=== PATIENT | female | born 1940 | race Caucasian/White ===

== ENCOUNTER → 2016-12-18 | Outpatient (CLI) | payer OTHER ==
[~2016-12-18] MED LIST: ADALAT CC PO; ADALAT CC30 MG PO; ALLEGRA ALLERG180 MG PO; AMBIEN PO; ANTIVERT PO; ASPIRIN; ASPIRIN81 M1 PO; ASPIRIN81 MG PO; CALTRATE 600+D PO; CALTRATE PLUS T1 TAB; CATAPRES-TTS-20.2 MG EXT; CATAPRES0.1 MG PO; CHANTIX; CLONIDINE PO; CRESTOR PO; CRESTOR5 MG PO; DIOVAN; HYDROCHLOROTHIA25 MG PO; IMODIUM2 MG; K-DUR20 ME2 PO; KCL PO; LEVOTHYROXINE100 MC1 PO; LEVOTHYROXINE100 MCG PO; LISINOPRIL20 MG PO; LOPRESSOR PO; LOPRESSOR100 MG PO; LORAZEPAM INT2 MG/ML; MAGNESIUM400 MG PO; METOPROLOL TAR100 MG PO; METOPROLOL TAR25 MG PO; MULTI VITAMIN1 EACH PO; MULTI-VITAMIN1 EAC1 PO; MULTI-VITAMIN1 TAB; MULTIPLE VITAMI1 T11 PO; NIFEDICAL PO; NIFEDICAL XL PO; NORCO 10/325 TA1 TAB PO; PREVACID PO; PREVACID SOLUTA30 MG PO; STOOL SOFT & ST1 TAB PO; STOOL SOFTENER100 M1 PO; SULAR; SYNTHROID PO; TOPROL XL PO
--- NOTE | ~2016-12-18 | MY29 ---
[facility] A Service of [facility] & [facility] RADIOLOGY TEXT RESULTS PATIENT: NIGHAT PARSON LOCATION: [facility] : 36 UNIT #: [id number] AGE: [address]: Dangelo Lau MD SEX: F ORDER DR: [id number] [facility] [address] [place], [place] [address] [id number] O MR#: [id number] Acc #: [id number] NAME: NIGHAT PARSON : 1940 SEX: F STUDY DATE/TIME: 12/18/2016 11:17 UNIT: [facility] ROOM: STUDY DESCRIPTION: [facility] SCREENING W/ CAD BILAT Attending Physician: Dangelo Lau Jr., M.D. Referring Physician: Dangelo Lau Jr., M.D. Ordering Physician: Dangelo Lau Jr., M.D. Primary Care Physician: Dangelo Lau Jr., M.D. MEDICAL IMAGING REPORT This report is preliminary unless electronic signature is present EXAM Digital screening mammograms 12/18/2016 HISTORY 76-year-old woman no risk elevation. Annual screen. COMPARISON Mammograms date to 11/24/2010 with most recent 12/12/2015 FINDINGS Digital imaging of each breast was completed utilizing screening protocol. Review includes FDA-approved CAD device. Breast parenchyma is moderately dense in both subareolar locations and upper outer quadrants bilaterally. This appearance is stable. Small nodularity is noted with some duct ectasia. I see no interval occurring mass. There are no suspicious microcalcifications and no architectural distortion. IMPRESSION Stable benign mammogram. Annual screening recommended. Patients over the age of 40 are entered into a reminder system with target due date for the next mammogram. A result letter will also be sent to the patient. BIRADS: 2, benign findings. Dictated by... Cedric Yarbrough M.D. THIS IS AN ELECTRONICALLY VERIFIED REPORT Cedric Yarbrough M.D. at 12/19/2016 8:06 AM JBB/rnr [facility] A Service of [facility] & [facility] RADIOLOGY TEXT RESULTS PATIENT: NIGHAT PARSON LOCATION: [facility] #: [id number] : 36 UNIT #: [id number] AGE: [address]: Dangelo Lau MD SEX: F ORDER DR: TD: 12/18/2016 20:07 JOB #: [id number] MEDICAL IMAGING REPORT Page 1 of 1 COPY
== END | disposition home or self-care (01) ==
LOC: CWCC 12-16 10:45
DX: Z12.31 Encounter for screening mammogram for malignant neoplasm of breast (principal)
CPT/HCPCS: G0202